=== PATIENT | female | born 1995 | race Caucasian/White ===

== ENCOUNTER 2019-06-10 12:07 | Outpatient (CLI) | payer BC, MEDICAID ==
[2019-06-10] VITALS (8 sets, daily range): BP systolic 110–121; BP diastolic 58–74; PULSE 83–100; TEMP 97.6
[~2019-06-10] VITALS: Ht 162.6 cm; Wt 79.1 kg
--- NOTE | 2019-06-10 12:15 | NUR ---
1215 G9L1 at 35.4 weeks gestation to LDR2 with c/o headache, swelling, RUQ pain, and leaking of fluid. Patient reports good movement. Patient changed into gown and wedged to left side in bed. EFMs explained and appied. FHR 140 bpm and reactive. No CTX per toco or patient reports. VSS. Blood pressure 120/74. SVE FT/50/-3 with negative amniotrace and no fluid noted. Plan of care reviewed.
--- NOTE | 2019-06-10 12:19 | NUR ---
Pt arrives to unit ambulatory with significant other from ER. Pt called [facility] with complaints of increasing swelling in hands and feet, seeing spots, and a headache that won't go away. Pt was told to come to unit for evaluation. Pt transferred care from [place] yesterday to [facility]. Pt seen in ER in [place] yesterday for "pains in stomach and bleeding with leaking fluid". Pt states [place] did no tests, states yesterday morning was "gushing blood" but bleeding has stopped. Pt thinks she is leaking fluid "a little bit at a time" with movement, denies contractions, but reports sharp pain in lower abdomen. EFM explained and placed. Pt resting. Vitals taken.
[2019-06-10] MEDS ORDERED: PRENATAL TABLET PO (12:29)
[2019-06-10] MEDS ORDERED: TYLENOL 500MG500 MG PO (12:29)
[2019-06-10 13:14] LABS: COLLECTION METHOD CATHETER
[2019-06-10 13:20] LABS: BASO % 0.3 % (0.0-2.0); EOS # 0.1 (0.0-0.7); EOS % 0.4 % (0-4.0); HEMOGLOBIN 10.2 g/dl (12.5-16.0); LYMPH # 2.2 (1.2-3.4); LYMPH % 15.7 % (20.0-51.0); MEAN CELL VOLUME 86 fl (80.0-100.0); MEAN CORPUSCULAR HEMOGLOBIN 28 pg (27.0-31.0); MEAN CORPUSCULAR HGB CONC 32 g/dl (33.0-37.0); MEAN PLATELET VOLUME 10.7 fl (7.4-10.4); MONO # 0.9 (0.1-0.6); MONO % 6.2 % (1.7-9.3); PLATELET COUNT 243 K/mm3 (130-400); RED BLOOD COUNT 3.71 M/mm3 (4.10-5.30)
[2019-06-10 13:23] LABS: HEMATOCRIT 31.8 % (37.0-47.0)
[2019-06-10 13:29] LABS: ALBUMIN 3.7 gm/dL (3.5-5.0); BILIRUBIN,TOTAL 0.4 mg/dL (0.0-1.0); CALCIUM 8.8 mg/dL (8.4-10.2); CREATININE, serum 0.55 (0.52-1.25); TOTAL PROTEIN 7.1 gm/dL (6.4-8.2)
[2019-06-10 13:34] LABS: PH 6 (5-8); SQUAMOUS EPITHELIAL 0-2 /hpf; URINE APPEARANCE Clear; URINE BACTERIA None Seen /hpf; URINE BILIRUBIN Negative (NEGATIVE); URINE BLOOD Negative (NEGATIVE); URINE COLOR Straw; URINE GLUCOSE 3+ (NEGATIVE); URINE KETONE Negative (NEGATIVE); URINE LEUKOCYTE ESTERASE Negative (NEGATIVE); URINE NITRATE Negative (NEGATIVE); URINE PROTEIN(semi-quant) Negative (NEGATIVE); URINE RBC 0-2 /hpf; URINE UROBILINOGEN Negative (NEGATIVE); URINE WBC 0-2 /hpf
== END 2019-06-10 14:15 | disposition home or self-care (01) ==
LOC: LDRO 12:07
PROVIDERS: Obstetrics & Gynecology
DX: O99.89 Other specified diseases and conditions complicating pregnancy, childbirth and the puerperium (principal); R51 Headache; R60.0 Localized edema; R10.11 Right upper quadrant pain; Z3A.35 35 weeks gestation of pregnancy

== ENCOUNTER 2019-06-12 18:38 | Outpatient (CLI) | payer BC, MEDICAID ==
[~2019-06-12] VITALS: Ht 162.6 cm; Wt 78.2 kg
[~2019-06-12 18:38] MED LIST: PRENATAL TABLET PO; TYLENOL 500MG500 MG PO
--- NOTE | 2019-06-12 18:50 | NUR ---
1849- PT PRESENTS TO LDR COMPLAINING OF LEAKING FLUID, TO ROOM PER WHEELCHAIR, CHANGED INTO GOWN 1856- EFM X2 APPLIED, PT DENIES CONTRACTIONS, STATES SHE IS FEELING THE BABY MOVE, HAD SEVERAL GUSHES OF FLUID THIS EVENING 1906- AMNITRACE NEGATIVE, AMNISURE COLLECTED, SVE BY THIS NURSE 0-/-3 WITH NO POOLING OF FLUID NOTED IN VAGINA. AMNITRACE SWABS FROM PT'S PERIPAD AND "PUDDLE" ON FLOOR WERE ALSO NEGATIVE. PLAN OF CARE DISCUSSED WITH PT AND QUESTIONS ANSWERED. 1909- NURSING ADMISSION HISTORY AND ASSESSMENT COMPLETED. AMNISURE SENT TO LAB. ORAL HYDRATION PROVIDED. [phone] DIFFICULT TO TRACE DUE TO MATERNAL POSITION CHANGE. 2001- DR PEREZ CALLED AND UPDATED ON PT HISTORY, COMPLAINT, STRIP, SVE, VITAL SIGNS, AMNITRACE, AND AMNISURE RESULTS. ORDERS FOR DISMISSAL TO HOME GIVEN. 2002- PT UPDATED ON LAB RESULTS AND PLAN OF CARE, EFM ADJUSTED. 2015- PT OFF MONITOR FOR DISMISSAL. DISMISSAL INSTRUCTIONS GIVEN AND PT VERBALIZED UNDERSTANDING. 2026- PT DISMISSED TO HOME ACCOMPANIED BY BOYFRIEND AND SON.
[2019-06-12 19:30] VITALS: BP 123/76; PULSE 95; TEMP 97.5
== END 2019-06-12 20:27 | disposition home or self-care (01) ==
LOC: LDRO 18:38 → LDR 18:50 → LDRO 20:27
DX: O42.913 Preterm premature rupture of membranes, unspecified as to length of time between rupture and onset of labor, third trimester (principal); Z3A.35 35 weeks gestation of pregnancy
CPT/HCPCS: OP

== ENCOUNTER 2019-06-13 15:35 | Outpatient (CLI) | payer BC, MEDICAID ==
[~2019-06-13] VITALS: Ht 162.6 cm; Wt 78.2 kg
--- NOTE | 2019-06-13 15:40 | NUR ---
PATIENT IN LR 2. PATIENT COMPLAINS OF LEAKING OF FLUID. PATIENT STATES SHE ISINT FEELING CONTRACTIONS. PATIENT HAS NO VAGINAL BLEEDING. SVE AND AMNITRACE OBTAINED. AMNITRACE NEGATIVE
[2019-06-13 15:44] VITALS: BP 125/81; PULSE 85
[2019-06-13 16:12] VITALS: BP 129/81; PULSE 85; TEMP 98
== END 2019-06-13 16:15 | disposition home or self-care (01) ==
LOC: LDRO 15:35
DX: O42.913 Preterm premature rupture of membranes, unspecified as to length of time between rupture and onset of labor, third trimester (principal); Z3A.36 36 weeks gestation of pregnancy

== ENCOUNTER 2020-06-01 14:36 | Outpatient (CLI) | payer BC, MEDICAID ==
[~2020-06-01] VITALS: Ht 165.1 cm; Wt 74.8 kg
[~2020-06-01 14:36] MED LIST changes: +MACROBID 1100 MG/CAP PO; +MOTRIN 800800 MG/TAB PO; +PERCOCET 325 MG1 TA2 PO
--- NOTE | 2020-06-01 15:05 | NUR ---
Pt presents to floor via wheelchair with fiance at 1440. Pt changes into gown, EFM explained and placed, VS taken. Pt reports that she fell yesterday in her bathroom, hitting the right side of her abdomen. Pt states that she felt 2 gushes of fluid yesterday and feels she has been leaking fluid, has been wearing a pad. She reports occasional spotting but no other vaginal bleeding, and states she has not felt the baby move as much today. Pt reports she has been dizzy and "hears my heartbeat in my ears". Amnitest negative, SVE closed, thick, and high.
[2020-06-01 15:25] VITALS: BP 105/58; PULSE 96; TEMP 97.9
--- NOTE | 2020-06-01 15:35 | NUR ---
Reactive, category 1 FHR strip obtained. See physician notification. Orders to discharge home with labor precuations and kick counts. Discharge orders reviewed by Fidel Cardenas RN and patient leaves ambulatory at 1535.
== END 2020-06-01 15:35 | disposition home or self-care (01) ==
LOC: LDRO 14:36
DX: O9A.213 Injury, poisoning and certain other consequences of external causes complicating pregnancy, third trimester (principal); Z3A.35 35 weeks gestation of pregnancy

== ENCOUNTER 2020-06-30 07:57 | Outpatient (CLI) | payer BC, MEDICAID ==
[~2020-06-30] VITALS: Ht 162.6 cm; Wt 79.1 kg
[2020-06-30 08:30] VITALS: BP 109/60; PULSE 63; TEMP 98.2
--- NOTE | 2020-06-30 08:30 | NUR ---
PT HERE FOR PAINS SHE HAS BEEN HAVING THE LAST COUPLE OF DAYS. ALSO REPORTS SHE HAS BEEN LEAKING FLUID SINCE SUNDAY. FHT'S FOUND IN THE 140'S WITH MODERATE VARIABILITY AND ACCELS. AMNIOTRACE NEGATIVE. SVE CLOSED/THICK/HIGH. ASSESSMENT COMPLETED. PHONED DR PEREZ AT 0814 REPORTING ALL OF THE ABOVE. HE STATES TO MONITOR FOR REACTIVE MONITOR STRIP AND THEN DISCHARGE TO HOME WITH EARLY LABOR INSTRUCTIONS.
[2020-06-30 08:45] VITALS: BP 111/59; PULSE 82
--- NOTE | 2020-06-30 08:45 | NUR ---
FHT'S REMAIN WITH MODERATE VARIABILITY AND ACCELS. CONTRACTIONS IRREGULAR AND DIFFICULT TO MONITOR. DISCUSSED EARLY LABOR AND DISCOMFORTS OF WITH PT AND SIGNIFICANT OTHER. QUESTIONS ANSWERED. PT TO GO HOME AND RETURN NEEDED. VERBALIZED UNDERSTANDING.
== END 2020-06-30 09:05 | disposition home or self-care (01) ==
LOC: LDRO 07:57 → LDR 08:14 → LDRO 09:05
DX: O42.913 Preterm premature rupture of membranes, unspecified as to length of time between rupture and onset of labor, third trimester (principal); O26.893 Other specified pregnancy related conditions, third trimester; R10.9 Unspecified abdominal pain; Z3A.34 34 weeks gestation of pregnancy
CPT/HCPCS: OP

== ENCOUNTER 2020-07-02 18:47 | Outpatient (CLI) | payer BC, MEDICAID ==
[~2020-07-02] VITALS: Ht 162.6 cm; Wt 79.1 kg
--- NOTE | 2020-07-02 18:40 | NUR ---
Pt arrived on unit via wheelchair and with complaints of contractions. Pt reports she fell last night at home landing on her right side of her abdomen, was monitored all night at [facility] and discharged this morning. Pt reports contractions and back pain started this evening while out running errands with family. Pt reports increased discharge but no large gush of fluid and denies any vaginal bleeding. Pt reports normal movement. EFM and toco monitors started. Vital signs WNL. SVE by this RN / with negative amnio-trace. Plan of care for labor assessment reviewed with pt.
[2020-07-02 19:45] VITALS: BP 121/58; PULSE 108; TEMP 97.9
[2020-07-02] MEDS ORDERED: TYLENOL 500MG500 MG PO (19:54)
[2020-07-02] MEDS ORDERED: BENADRYL25 M2 PO (19:55)
[2020-07-02 20:15] VITALS: BP 125/77; PULSE 100
--- NOTE | 2020-07-02 20:15 | NUR ---
Discharge instructions reviewed with pt. Pt verbalized an understanding, agreed with the plan and states no questions at this time.
== END 2020-07-02 20:30 | disposition home or self-care (01) ==
LOC: LDRO 18:47 → LDR 18:47 → LDRO 18:53 → LDR 20:30 → LDRO 20:30
DX: O62.9 Abnormality of forces of labor, unspecified (principal); Z3A.35 35 weeks gestation of pregnancy
CPT/HCPCS: OP

== ENCOUNTER → 2020-07-30 | Outpatient (CLI) | payer BC, MEDICAID ==
[~2020-07-30] MED LIST changes: +BENADRYL25 M2 PO; +PROAIR HFA0.09 MG/AC IH
== END ==
LOC: ZCOL.LAB 11:07
DX: Z20.822 Contact with and (suspected) exposure to COVID-19 (principal)

== ENCOUNTER 2020-08-01 11:33 | Outpatient (CLI) | payer BC, MEDICAID ==
[~2020-08-01] VITALS: Ht 162.6 cm; Wt 82.3 kg
[~2020-08-01 11:33] MED LIST changes: -PROAIR HFA0.09 MG/AC IH
[2020-08-01 11:45] VITALS: BP 112/64; PULSE 83; TEMP 98.1
--- NOTE | 2020-08-01 12:37 | NUR ---
1140 PATIENT HERE FOR COMPLAINTS OF CONTRACTIONS. ASSESSMENT COMPLETED BY Zenon DURON RN AND SVE BY Nash VANCE RN. PATIENT DENIES NEEDS. SVE . DR HARDWICK UPDATED AND WILL MONIOTR FOR HOUR AND RECHECK.
[2020-08-01 13:20] VITALS: PULSE 78
--- NOTE | 2020-08-01 13:32 | NUR ---
1320 SVE UNCHANGED. ALL DISCHARGE INSTRUCTIONS GIVEN TO PATIENT WITH VERBAL UNDERSTANDING. 1323 PATIENT STATES PUT A PAD ON FOR RIDE HOME AND SATURATED ALREADY. AMNIOTRACE DONE TO PAD WITH NEGATIVE RESULTS NOTED. DR HARDWICK UPDATED. SPEC EXAM DONE BY DR HARDWICK WITH AMNIOTRACE SWAB ALSO AT THIS TIME WITH A NEGATIVE SWAB ALSO. ALL DISCHARGE EDUCATION DONE BY DR HARDWICK AT THIS TIME. VERBAL UNDERSTANING BY PATIENT
[2020-08-02] MEDS ORDERED: PROAIR HFA0.09 MG/AC IH (10:26)
== END 2020-08-01 13:30 | disposition home or self-care (01) ==
LOC: LDRO 11:33 → LDR 11:45 → LDRO 11:54 → LDR 13:30
DX: Z34.93 Encounter for supervision of normal pregnancy, unspecified, third trimester (principal)
CPT/HCPCS: OP

== ENCOUNTER 2020-08-02 10:19 | Outpatient (CLI) | payer BC, MEDICAID ==
[~2020-08-02] VITALS: Ht 162.6 cm; Wt 82.3 kg
--- NOTE | 2020-08-02 10:10 | NUR ---
1010-G10L2 39[address] Hickman on unit for complaints of contractions since 0300. Patient was seen yesterday on unit with contractions and no change in cervix and was discharged home. SVE by Stacie WHITNEY /3, Amnitest neg, BOWI. Repositioined WL and updated MD. Orders to labor check patient x1 hour. TOCO tracing contractions irregularly every 4-6 min. Patient breaths through contractions. Palpate mild. Assessment complete. 1110-SVE by DEVONTE Barcenas unchanged. Discharge orders recieved by Dr. Kim. 1124-patient off EFM. Reviewed discharge instructions. Patient scheduled for induction of labor in AM. Denies questions. Patient reports she plans to find hotel to stay in town locally until morning. 1130-Off unit with significant other.
[2020-08-02] MEDS ORDERED: PROAIR HFA0.09 MG/AC IH (10:26)
[2020-08-02 10:30] VITALS: BP 136/64; PULSE 80; TEMP 98.4
[2020-08-03] MEDS ORDERED: MOTRIN 800800 MG/TAB PO (08:44)
[2020-08-03] MEDS ORDERED: PERCOCET 325 MG1 TA2 PO (08:44)
== END 2020-08-02 11:30 | disposition home or self-care (01) ==
LOC: LDRO 10:19 → LDR 11:19 → LDRO 11:30
DX: Z34.83 Encounter for supervision of other normal pregnancy, third trimester (principal); Z3A.39 39 weeks gestation of pregnancy
CPT/HCPCS: OP

== ENCOUNTER 2020-08-02 16:57 | Inpatient (IN) | payer BC, MEDICAID ==
[2020-08-02] VITALS (13 sets, daily range): BP systolic 101–128; BP diastolic 51–71; PULSE 63–108; TEMP 97.6–98.9
[~2020-08-02] VITALS: Ht 162.6 cm; Wt 82.3 kg
[~2020-08-02 16:57] MED LIST changes: +PROAIR HFA0.09 MG/AC IH
--- NOTE | 2020-08-02 17:20 | NUR ---
1705 PATIENT HERE FOR COMPLAINTS OF CONTRACTIONS MORE INTENSE AND CLOSER TOGETHER SVE 8/100/0 INTACT. CONTRACTIONS EVERY [address] BATRES CALLED AND UPDATED. ORDERS TO ADMIT NOW. 1710 IV STARTED IN LEFT HAND LR HUNG. PATIENT WANTS EPIDURAL NOW. ODETTE OLMEDO CRNA CALLED
[2020-08-02 17:49] LABS: BASO % 0.2 % (0.0-2.0); EOS % 0.2 % (0-4.0); GRAN # 11.8 (1.4-6.5); GRAN % 74.6 % (42.2-75.2); HEMOGLOBIN 10.3 g/dl (12.5-16.0); LYMPH % 18.8 % (20.0-51.0); MEAN CELL VOLUME 86 fl (80.0-100.0); MEAN CORPUSCULAR HEMOGLOBIN 27 pg (27.0-31.0); MEAN CORPUSCULAR HGB CONC 31 g/dl (33.0-37.0); MEAN PLATELET VOLUME 10.7 fl (7.4-10.4); MONO # 0.9 (0.1-0.6); MONO % 5.6 % (1.7-9.3); PLATELET COUNT 296 K/mm3 (130-400); RED BLOOD COUNT 3.89 M/mm3 (4.10-5.30); REDCELL DISTRIBUTION WIDTH-CV 13.9 % (11.5-14.5)
[2020-08-02 17:53] LABS: HEMATOCRIT 33.4 % (37.0-47.0)
--- NOTE | 2020-08-02 18:19 | NUR ---
SVE with AROM by DR Slade, complete by end of exam. NSY notified. Pt set up for delivery. 1824 Pushing started. Pt relaxed, comfortable, not feeling contractions. 1828 of male with reduction of NC x [address] Slade.
--- NOTE | 2020-08-02 18:31 | NUR ---
Placenta delivers spont and intact with 3 vessell, cord. Pitocin 30 units in 500 cc LR piggybacked into mainline and started @ bolus rate. Pericare performed, ice pack to perineum, bed together.
--- NOTE | 2020-08-02 18:33 | NUR ---
straight cathed by Dr Slade, with return of small amount clear yellow urine.
--- NOTE | 2020-08-02 22:30 | NUR ---
Up to bathroom with steady gait. Voids large amount. Performs own pericare, clean gown on. Ambulates to room with steady gait.
[2020-08-03 00:10] VITALS: BP 100/44; PULSE 70; TEMP 99
[2020-08-03 07:50] VITALS: BP 112/64; PULSE 78; TEMP 98.2
[2020-08-03] MEDS ORDERED: PERCOCET 325 MG1 TA2 PO (08:44)
[2020-08-03] MEDS ORDERED: MOTRIN 800800 MG/TAB PO (08:44)
--- NOTE | 2020-08-03 11:34 | NUR ---
Percocet 5/325 mg one given per request and as ordered.
[2020-08-03 16:55] VITALS: BP 104/58; PULSE 61; TEMP 97.8
[2020-08-03 20:00] VITALS: BP 104/62; PULSE 70
[2020-08-04 08:00] VITALS: BP 104/58; PULSE 56; TEMP 97.8
[2020-08-04 15:45] VITALS: BP 101/57; PULSE 81; TEMP 97.8
--- NOTE | 2020-08-04 17:30 | NUR ---
PATIENT CALLED OUT TO REPORT DIZZINESS AND LIGHT HEADEDNESS. VITALS TAKEN BY THIS RN--THEY WERE WITHIN NORMAL LIMITS. NO HEADACHE PRESENT PER PATIENT. PATIENT REPORTS ADEQUATE EATING AND DRINKING OF FLUIDS TODAY. SHE IS VOIDING. HAS NOT HAD A BM SINCE 08/01 AND MILK OF MAGNESIA WAS GIVEN FOR THIS AROUND 1230. PT IS CURRENTLY FEEDING AND THEN WILL LAY BACK TO SEE IF THAT HELPS.
== END 2020-08-04 17:20 | disposition home or self-care (01) | DRG 807 ==
LOC: LDRO 16:57 → OB 17:16 → LDR 17:16 → OB 23:30
PROVIDERS: Obstetrics & Gynecology; ADMIT Obstetrics & Gynecology
PROC: 10E0XZZ Delivery of Products of Conception, External Approach (ICD-10-PCS; principal; 2020-08-02)
PROC: 10907ZC Drainage of Amniotic Fluid, Therapeutic from Products of Conception, Via Natural or Artificial Opening (ICD-10-PCS; 2020-08-02)
DX: O99.344 Other mental disorders complicating childbirth (principal); Z37.0 Single live birth; F41.9 Anxiety disorder, unspecified; O69.81X0 Labor and delivery complicated by cord around neck, without compression, not applicable or unspecified; Z3A.39 39 weeks gestation of pregnancy
CPT/HCPCS: OP; J2590; J7120